=== PATIENT | female | born 1955 | race Caucasian/White ===

== ENCOUNTER → 2016-11-18 | Outpatient (CLI) | payer BC ==
--- NOTE | 2016-11-19 13:14 | MM ---
Reason for exam: screening (asymptomatic). Last mammogram was performed 1 year and 2 months ago. History: Patient is postmenopausal and is nulliparous. Family history of breast cancer in maternal grandmother at age 80. Physical Findings: A clinical breast exam by your physician is recommended on an annual basis and results should be correlated with mammographic findings. MG Screening Mammo w CAD Bilateral CC and MLO view(s) were taken. Prior study comparison: September 23, 2015, bilateral MG screening mammo w CAD. March 26, 2014, bilateral MG screening mammo w CAD. The breast tissue is heterogeneously dense. This may lower the sensitivity of mammography. Benign calcifications. There is no discrete abnormality. No significant changes when compared with prior studies. ASSESSMENT: Benign, BI-RAD 2 RECOMMENDATION: Routine screening mammogram of both breasts in 1 year.
== END | disposition home or self-care (01) ==
LOC: RADMAMWWP 11:12
PROVIDERS: ATTEND Internal Medicine
DX: Z12.31 Encounter for screening mammogram for malignant neoplasm of breast (principal)

== ENCOUNTER 2017-01-20 17:23 | Emergency (ER) | payer BC ==
[2017-01-20 17:27] VITALS: RESP 20; TEMP 97.5
--- NOTE | 2017-01-20 17:40 | ED ---
General Adult HPI - General Chief complaint: Extremity Problem,Nontraumatic Stated complaint: leg pain Time Seen by Provider: 01/20/17 17:30 Source: patient, RN notes reviewed Mode of arrival: ambulatory Limitations: no limitations - History of Present Illness Initial comments: Patient 61-year-old female who presents emergency room today with chief complaint of rule out DVT. Patient does admit that she's had increased pain to the posterior aspect of her calf. She states started approximate hour half ago. She states she's been running around all day. She states she's been in out of her car. She states that one of the last time she got a car she felt like something stuck in the back of the right calf. She states she noticed some bruising and some swelling to the area. She states called her doctor who advised come here to the emergency room to rule out DVT. Patient denies any other symptoms. She denies any history of the DVT. She states she's not on any blood thinners. Patient denies any recent fever, chills, shortness of breath , chest pain, back pain, abdominal pain, nausea or vomiting, numbness or tingling, dysuria or hematuria, constipation or diarrhea, headaches or visual changes, or any other complaints. - Related Data Allergies Allergy/AdvReac Type Severity Reaction Status Date / Time Sulfa (Sulfonamide Allergy Unknown Verified 01/20/17 17:27 Antibiotics) Review of Systems ROS Statement: Those systems with pertinent positive or pertinent negative responses have been documented in the HPI. ROS Other: All systems not noted in ROS Statement are negative. Past Medical History Additional Past Medical History / Comment(s): colitis History of Any Multi-Drug Resistant Organisms: None Reported Past Surgical History: Bowel Resection Additional Past Surgical History / Comment(s): ileostomy. Past Psychological History: No Psychological Hx Reported Smoking Status: Never smoker Past Alcohol Use History: None Reported Past Drug Use History: None Reported General Exam - General Exam Comments Initial Comments: General: The patient is awake and alert, in no distress, and does not appear acutely ill. Neck: The neck is supple, there is no tenderness or JVD. Cardiovascular: There is a regular rate and rhythm. No murmur, rub or gallop is appreciated. Respiratory: Lungs are clear to auscultation, respirations are non-labored, breath sounds are equal. No wheezes, stridor, rales, or rhonchi. Musculoskeletal: Patient does have some mild redness and bruising and color to the right posterior Calf. Patient shows full range of motion. No bony tenderness on exam. Sensation intact. Pulses equal bilaterally 2+. Strength 5 /5. Neurological: A&O x 3. CN II-XII intact, There are no obvious motor or sensory deficits. Coordination appears grossly intact. Speech is normal. Skin: Skin is warm and dry and no rashes or lesions are noted. Psychiatric: Normal mood and affect. Limitations: no limitations Course Vital Signs 01/20/17 01/20/17 17:24 18:05 Temperature 97.5 F L Pulse Rate 84 83 Respiratory 20 20 Rate Blood Pressure 147/87 159/76 O2 Sat by Pulse 98 96 Oximetry Medical Decision Making - Medical Decision Making Patient's ultrasound is negative for any evidence of a DVT. Results were discussed with the patient. Patient is advised to ice elevate the affected area. Advised to follow family doctor return here to the emergency room if any symptoms increase or worsen or for any other concerns. Disposition Clinical Impression: Contusion Disposition: HOME SELF-CARE Condition: Good Instructions: Contusion in Adults (ED) Additional Instructions: Please follow-up with family doctor in the next 2 days of symptoms have not improved. Please return to emergency room if the symptoms increase or worsen or for any other concerns. Referrals: Sidney Johnston MD [Primary Care Provider] - 1-2 days Time of Disposition: 18:26
[2017-01-20 18:07] VITALS: BP 159/76; PULSE 83
--- NOTE | 2017-01-20 18:17 | US ---
EXAMINATION TYPE: US venous doppler duplex LE RT DATE OF EXAM: 01/20/2017 5:35 PM COMPARISON: NONE CLINICAL HISTORY: Palpable lump/bruising on right posterior calf after riding in car today. No histor y of DVT. SIDE PERFORMED: Right TECHNIQUE: The lower extremity deep venous system is examined utilizing real time linear array sonog rebel with graded compression, doppler sonography and color-flow sonography. VESSELS IMAGED: External Iliac Vein (EIV) Common Femoral Vein Deep Femoral Vein Greater Saphenous Vein * Femoral Vein Popliteal Vein Small Saphenous Vein * Proximal Calf Veins (* superficial vessels) Right Leg: Negative for DVT No abnormality visualized at area of patient's concern. IMPRESSION: Negative exam. No evidence of deep venous thrombosis in the right leg.
== END 2017-01-20 18:34 | disposition home or self-care (01) ==
LOC: EC 17:23
DX: S80.11XA Contusion of right lower leg, initial encounter (principal); Z88.2 Allergy status to sulfonamides; X58.XXXA Exposure to other specified factors, initial encounter; Y93.02 Activity, running
CPT/HCPCS: 99283

== ENCOUNTER → 2019-01-25 | Outpatient (CLI) | payer BC ==
--- NOTE | 2019-01-26 13:18 | MM ---
Reason for exam: screening (asymptomatic). Last mammogram was performed 2 years and 2 months ago. History: Patient is postmenopausal and is nulliparous. Family history of breast cancer in maternal grandmother at age 80. Physical Findings: A clinical breast exam by your physician is recommended on an annual basis and results should be correlated with mammographic findings. MG Screening Mammo w CAD Bilateral CC and MLO view(s) were taken. Prior study comparison: November 18, 2016, bilateral MG screening mammo w CAD. September 23, 2015, bilateral MG screening mammo w CAD. The breast tissue is heterogeneously dense. This may lower the sensitivity of mammography. There are benign appearing dystrophic calcifications in the right breast. There is chronic nodularity in the left breast. Asymmetric breast tissue left posterior outer breast, stable. There is no discrete abnormality. ASSESSMENT: Benign, BI-RAD 2 RECOMMENDATION: Routine screening mammogram of both breasts in 1 year.
== END | disposition home or self-care (01) ==
LOC: RADMAMWWP 16:05
PROVIDERS: ATTEND Internal Medicine
DX: Z12.31 Encounter for screening mammogram for malignant neoplasm of breast (principal)
CPT/HCPCS: 77067

== ENCOUNTER → 2020-07-25 | Outpatient (CLI) | payer MEDICARE, OTHER ==
--- NOTE | 2020-07-26 14:06 | MM ---
Reason for exam: screening (asymptomatic). Last mammogram was performed 1 year and 6 months ago. History: Patient is postmenopausal and is nulliparous. Family history of breast cancer in maternal grandmother at age 80. Took hormonal contraceptives for 1 year. Physical Findings: A clinical breast exam by your physician is recommended on an annual basis and results should be correlated with mammographic findings. MG Screening Mammo w CAD Bilateral CC and MLO view(s) were taken. Prior study comparison: January 25, 2019, bilateral MG screening mammo w CAD. November 18, 2016, bilateral MG screening mammo w CAD. The breast tissue is heterogeneously dense. This may lower the sensitivity of mammography. Focal asymmetry right breast is stable. No significant changes when compared with prior studies. ASSESSMENT: Benign, BI-RAD 2 RECOMMENDATION: Routine screening mammogram of both breasts in 1 year.
== END | disposition home or self-care (01) ==
LOC: RADMAMWWP 11:28
PROVIDERS: ATTEND Internal Medicine
DX: Z12.31 Encounter for screening mammogram for malignant neoplasm of breast (principal)
CPT/HCPCS: 77067

== ENCOUNTER → 2020-08-21 | Outpatient (CLI) | payer MEDICARE, OTHER ==
--- NOTE | 2020-08-21 13:05 | US ---
EXAMINATION TYPE: US venous doppler duplex LE RT DATE OF EXAM: 08/21/2020 12:44 PM COMPARISON: US 2017 CLINICAL HISTORY: 65-year-old female M79.661 Pain in Right lower limb. Right leg pain x 2 days SIDE PERFORMED: Right TECHNIQUE: The lower extremity deep venous system is examined utilizing real time linear array sonog rebel with graded compression, doppler sonography and color-flow sonography. FINDINGS: VESSELS IMAGED: Common Femoral Vein Deep Femoral Vein Greater Saphenous Vein * Femoral Vein Popliteal Vein Small Saphenous Vein * Proximal Calf Veins (* superficial vessels) Right Leg: Appears negative for DVT IMPRESSION: No evidence for DVT within the right lower extremity imaged from the groin to the upper calf.
== END ==
LOC: RADUSWWP 12:16
PROVIDERS: ATTEND Internal Medicine
DX: M79.661 Pain in right lower leg (principal)

== ENCOUNTER 2021-05-05 11:45 | Emergency (ER) | payer MEDICARE, OTHER ==
--- NOTE | 2021-05-05 15:13 | ED ---
General Adult HPI - General Chief complaint: Upper Respiratory Infection Stated complaint: COVID + wants antibodies Time Seen by Provider: 05/05/21 15:04 Source: patient Mode of arrival: ambulatory Limitations: no limitations - History of Present Illness Initial comments: 65-year-old female with a past medical history of colitis presents to the emergency room for a chief complaint of wanting antibodies. Patient tested positive for Covid earlier today at her doctor's office. She developed symptoms 6 days ago. Patient did get vaccinated. Patient has not had any fevers but has had a cough and a head cold. She saw her primary care doctor who recommended she come here for antibodies and gave her amoxicillin. Denies shortness of breath.Patient has no other complaints at this time including shortness of breath, chest pain, abdominal pain, nausea or vomiting, headache, or visual changes. - Related Data Home Medications Medication Instructions Recorded Confirmed ALPRAZolam [Xanax] 0.25 mg PO Q8H PRN 01/20/17 01/20/17 Allergies Allergy/AdvReac Type Severity Reaction Status Date / Time Sulfa (Sulfonamide Allergy Rash/Hives Verified 05/05/21 14:33 Antibiotics) Review of Systems ROS Statement: Those systems with pertinent positive or pertinent negative responses have been documented in the HPI. ROS Other: All systems not noted in ROS Statement are negative. Past Medical History Additional Past Medical History / Comment(s): colitis History of Any Multi-Drug Resistant Organisms: None Reported Past Surgical History: Bowel Resection Additional Past Surgical History / Comment(s): ileostomy. Past Psychological History: No Psychological Hx Reported Smoking Status: Never smoker Past Alcohol Use History: None Reported Past Drug Use History: None Reported General Exam Limitations: no limitations General appearance: alert, in no apparent distress Head exam: Present: atraumatic Eye exam: Present: normal appearance, PERRL, EOMI. Absent: scleral icterus, conjunctival injection ENT exam: Present: normal exam, mucous membranes moist Neck exam: Present: normal inspection, full ROM. Absent: tenderness Respiratory exam: Present: normal lung sounds bilaterally. Absent: respiratory distress, wheezes Cardiovascular Exam: Present: regular rate, normal rhythm, normal heart sounds Course Vital Signs 05/05/21 14:33 Temperature 97.7 F Pulse Rate 96 Respiratory 20 Rate Blood Pressure 156/103 O2 Sat by Pulse 99 Oximetry Medical Decision Making - Medical Decision Making Vitals are stable. Patient is well appearing. We will start patient on antibody infusion. Patient is stable for outpatient follow-up. Will return for any worsening symptoms. Disposition Clinical Impression: COVID Disposition: HOME SELF-CARE Condition: Good Instructions (If sedation given, give patient instructions): Coronavirus Disease 2019 (COVID-19) Additional Instructions: Please take vitamin C, D, and zinc. Follow-up with your doctor. Return to the emergency room for any worsening symptoms. Is patient prescribed a controlled substance at d/c from ED?: No Referrals: Kenji Brown MD [Primary Care Provider] - 1-2 days Time of Disposition: 15:12
[2021-05-05] MEDS ORDERED: CASIRIVIMAB (REGN10933) (EUA) 600 MG, IMDEVIMAB (REGN10987) (EUA) 600 MG in SODIUM CHLO... IVPB ONE (15:15)
[2021-05-05] MEDS ORDERED: SODIUM CHLORIDE 0.9% 50 ML IVPB ONE (15:15)
[2021-05-05 16:26] VITALS: BP 124/80; PULSE 80; RESP 16; TEMP 98.7
== END 2021-05-05 17:06 | disposition home or self-care (01) ==
LOC: EC 11:45
DX: U07.1 COVID-19 (principal); Z88.2 Allergy status to sulfonamides
CPT/HCPCS: 96365; 99283; Q0243

== ENCOUNTER → 2021-08-08 | Outpatient (CLI) | payer MEDICARE, OTHER ==
--- NOTE | 2021-08-12 08:54 | MM ---
Reason for exam: screening (asymptomatic). Last mammogram was performed 1 year ago. History: Patient is postmenopausal and is nulliparous. Family history of breast cancer in maternal grandmother at age 80. Took hormonal contraceptives for 1 year. Physical Findings: A clinical breast exam by your physician is recommended on an annual basis and results should be correlated with mammographic findings. MG 3D Screening Mammo W/Cad Bilateral CC and MLO view(s) were taken. Prior study comparison: July 25, 2020, bilateral MG screening mammo w CAD. January 25, 2019, bilateral MG screening mammo w CAD. The breast tissue is heterogeneously dense. This may lower the sensitivity of mammography. No significant changes when compared with prior studies. ASSESSMENT: Benign, BI-RAD 2 RECOMMENDATION: Routine screening mammogram of both breasts in 1 year.
== END | disposition home or self-care (01) ==
LOC: RADMAMWWP 10:11
PROVIDERS: ATTEND Internal Medicine
DX: Z12.31 Encounter for screening mammogram for malignant neoplasm of breast (principal); Z78.0 Asymptomatic menopausal state; Z80.3 Family history of malignant neoplasm of breast
CPT/HCPCS: 77063; 77067

== ENCOUNTER → 2023-08-12 | Outpatient (CLI) | payer MEDICARE ==
--- NOTE | 2023-08-13 10:12 | MM ---
Reason for Exam: Screening (asymptomatic). Last screening mammogram was performed 12 month(s) ago. Patient History: Menarche at age 11. Patient has no children. Postmenopausal. Patient used Hormonal Contraceptives for 1 year. Maternal grandmother had breast cancer, age 80. Risk Values: Pricilla 5 year model risk: 1.9%. NCI Lifetime model risk: 5.9%. Prior Study Comparison: 07/25/2020 Bilateral Screening Mammogram, [facility]. 08/08/2021 Bilateral Screening Mammogram, [facility]. 08/10/2022 Bilateral MG 3D screening mammo w/cad, [facility]. Tissue Density: There are scattered fibroglandular densities. Findings: Analyzed By CAD. There is no suspicious group of microcalcifications or new suspicious mass in either breast. Benign-appearing calcifications. Overall Assessment: Benign, BI-RAD 2 Management: Screening Mammogram of both breasts in 1 year. . Patient should continue monthly self-breast exams. A clinical breast exam by your physician is recommended on an annual basis. This exam should not preclude additional follow-up of suspicious palpable abnormalities. Note on Pricilla scores and lifetime risk: 1. A Pricilla score greater than 3% is considered moderate risk. If this is the case, consider specialist referral to assess eligibility for a risk reducing agent. 2. If overall lifetime risk for the development of breast cancer is 20% or higher, the patient may qualify for future screening with alternating mammogram and breast MRI. Electronically signed and approved by: Sylvester Evangelista M.D. Radiologis
== END | disposition home or self-care (01) ==
LOC: RADMAMWWP 10:48
PROVIDERS: ATTEND Internal Medicine
DX: Z12.31 Encounter for screening mammogram for malignant neoplasm of breast (principal); Z80.3 Family history of malignant neoplasm of breast; Z78.0 Asymptomatic menopausal state
CPT/HCPCS: 77063; 77067

== ENCOUNTER → 2024-08-14 | Outpatient (CLI) | payer MEDICARE ==
--- NOTE | 2024-08-14 11:14 | MM ---
Reason for Exam: Screening (asymptomatic). Last screening mammogram was performed 12 month(s) ago. Patient History: Menarche at age 11. Patient has no children. Postmenopausal. Patient used Hormonal Contraceptives for 1 year. Maternal grandmother had breast cancer, age 80. Risk Values: Pricilla 5 year model risk: 1.9%. NCI Lifetime model risk: 5.6%. Prior Study Comparison: 08/08/2021 Bilateral Screening Mammogram, [facility]. 08/10/2022 Bilateral MG 3D screening mammo w/cad, [facility]. 08/12/2023 Bilateral MG 3D screening mammo w/cad, [facility]. Tissue Density: There are scattered areas of fibroglandular density. Findings: Analyzed By CAD. Right breast biopsy clip. Right breast: There is no suspicious group of microcalcifications or new suspicious mass. Benign-appearing calcifications right breast. Left breast: There is no suspicious group of microcalcifications or new suspicious mass. Benign-appearing calcifications left breast. Overall Assessment: Benign, BI-RAD 2 Management: Screening Mammogram of both breasts in [address] [facility] will attempt to contact patient to return for supplemental views and ultrasound if indicated. Patient should continue monthly self-breast exams. A clinical breast exam by your physician is recommended on an annual basis. This exam should not preclude additional follow-up of suspicious palpable abnormalities. Note on Pricilla scores and lifetime risk: 1. A Pricilla score greater than 3% is considered moderate risk. If this is the case, consider specialist referral to assess eligibility for a risk reducing agent. 2. If overall lifetime risk for the development of breast cancer is 20% or higher, the patient may qualify for future screening with alternating mammogram and breast MRI. [facility], , 08/14/2024 11:10 AM. Electronically signed and approved by: Krish Cantor DO
== END | disposition home or self-care (01) ==
LOC: RADBDWWP 10:15
PROVIDERS: ATTEND Internal Medicine
DX: Z12.31 Encounter for screening mammogram for malignant neoplasm of breast (principal); R92.323 Mammographic fibroglandular density, bilateral breasts; Z78.0 Asymptomatic menopausal state; Z80.3 Family history of malignant neoplasm of breast; Z92.0 Personal history of contraception
CPT/HCPCS: 77063; 77067

== ENCOUNTER → 2024-08-16 | Outpatient (CLI) | payer MEDICARE ==
--- NOTE | 2024-08-18 09:53 | BD ---
EXAMINATION TYPE: Axial Bone Density DATE OF EXAM: 08/16/2024 CLINICAL HISTORY: 69 years old Female. ICD-10 CODE: N95.1 POST BRITTANY SYMPTOMS M85.88 , Additional His tory: Height: 5 ft 2 in Weight: 146 FRAX RISK QUESTIONS: Alcohol (3 or more units per day): no Family History (Parent hip fracture): no Glucocorticoids (More than 3mos): yes (Ex: prednisone, prednisolone, methylprednisolone, dexamethasone, and hydrocortisone). History of Fracture in Adulthood: no Secondary Osteoporosis: 1. Type 1 Diabetes: no 2. Hyperthyroidism: no 3. Menopause before 45: no 4. Malnutrition: colitis 5. Chronic liver disease: no Rheumatoid Arthritis: no Current Tobacco Use: no RISK FACTORS HISTORY OF: Surgery to Spine/Hip(right/left)/Wrist (right/left): carpal tunnel right wrist MEDICATIONS: Thyroid Medications: none Osteoporosis Medications: none EXAM MEASUREMENTS: Bone mineral densitometry was performed using the Help[employer]Systems System. Bone mineral density as measured about the Lumbar spine is: ----- L1-L4(G/cm2): 1.143 T Score Values are as follows: ----- L1: -1.4 ----- L2: -1.0 ----- L3: 0.9 ----- L4: 0.1 ----- L1-L4: -0.3 Z Score Values are as follows: ----- L1: 0.2 ----- L2: 0.6 ----- L3: 2.5 ----- L4: 1.7 ----- L1-L4: 1.3 Bone mineral density has: decreased -6.6 % since study of: 2013 Bone mineral density about the R hip (g/cm2): 0.767 Bone mineral density about the L hip (g/cm2): 0.782 T Score values are as follows: -----R Neck: -2.0 -----L Neck: -1.8 -----R Total: -1.2 -----L Total: -1.2 Z Score values are as follows: -----R Neck: -0.3 -----L Neck: -0.2 -----R Total: 0.2 -----L Total: 0.3 Bone mineral density has: decreased -5.3 % since study of: 2013 FRAX%s: The graph provided illustrates a 11.7 % chance for a major osteoporotic fx and a 2.3 % chance for the hips probability for fx in 10 years time. IMPRESSION: Osteopenia (T Score between -2.5 and -1). There is slightly increased risk of fracture and the patient may be considered for treatment. Re-Screen 2-5 years. NOTE: T-SCORE=SD OF THE YOUNG ADULT MEAN. [facility], , 08/18/2024 9:51 AM
== END | disposition home or self-care (01) ==
LOC: RADBDWWP 15:33
PROVIDERS: ATTEND Internal Medicine
DX: M85.89 Other specified disorders of bone density and structure, multiple sites (principal); N95.1 Menopausal and female climacteric states
CPT/HCPCS: 77080